=== PATIENT | male | born 1960 | race Caucasian/White ===

== ENCOUNTER 2023-05-31 11:20 | Outpatient (AMB) | payer BC, MEDICARE, SELFPAY ==
--- NOTE | 2023-05-31 10:42 | A.OFFPSYCH_ITS ---
Intake Intake Visit Reasons: depression Allergies cephalexin [From Keflex] Allergy (Severe, Verified 05/31/23 11:13) Difficulty Breathing Medication List - Last Reconciled 05/31/23 by Haroon Helton MD glyburide 10 mg PO BID lisinopril 5 mg PO DAILY lorazepam 1 mg PO DAILY PRN sitagliptin phosphate (Januvia) 25 mg PO DAILY HPI- Psychiatric Chief Complaint: depression HPI Narrative: Pt seen in f/u mood generally okay chronically anxious no significant depressive or manic episodes noted patient has concerns about with his children who is involved with drugs. He also has had difficulty with 1 of his siblings who may be having difficulties with certain legal issues in the family. In general the patient's concerns are reality based he did not bring forth any current delusional concerns. He does state that his blood sugars are not always in good control Mental Status Exam Mental Status Exam Narrative: Mental Status Exam Narrative: Appearance: Casually dressed weight beers Behavior: Cooperative psychomotor: No psychomotor abnormalities no abnormal movements Speech: Clear Thought proccess goal-directed reality based Thought content: Concerns regarding family himself life situation situation the country Mood: Anxiety Affect: Appropriate to mood SI:denies HI:denies VH/AH:none Delusions: None overly discussed Insight/judgment: Memory/cog: Grossly intact Telehealth Telehealth Location of provider rendering services: practice address Location of patient: address on file Patient Identification confirmed using: Name, : Yes Telehealth method: video Patient verbally consented to treatment: Yes Patient verbally consented to billing insurance company: Yes Assessment and Plan Assessment & Plan (1) Schizoaffective disorder with good prognostic features: Status: Acute Code(s): F25.9 - Schizoaffective disorder, unspecified (2) Type 2 diabetes mellitus: Status: Acute Code(s): E11.9 - Type 2 diabetes mellitus without complications Plan Strongly urged patient to follow his medical regimen lorazepam for anxiety used only intermittently. Some hints at past preoccupations with super natural but generally reality based feels supported by continued connection Medications: New lorazepam 1 mg PO DAILY PRN 10 tabs 1RF anxiety glyburide 10 mg PO BID lisinopril 5 mg PO DAILY lorazepam 1 mg PO DAILY PRN 10 tabs 1RF anxiety sitagliptin phosphate (Januvia) 25 mg PO DAILY albuterol sulfate 90 mcg/actuation 2 puffs inhalation Q6H PRN 6.7 grams 1RF shortness of breath or wheezing lorazepam 1 mg PO DAILY PRN 10 tabs 1RF anxiety Counseling and coordination of Care Pt. Self Management counseling: General coping skills Details-Med Mgmt counseling: Has not wanted to be on antipsychotics for many years he knows this is always an open possibility Diagnosis and Prognosis Counseling: Adequacy of current interventions Details: I spent [38] minutes reviewing the record, seeing the patient and documenting in the medical record. Counseling provided to the patient/caregiver as outlined below. Addressed patient/caregiver concerns regarding current medication regime including effective adherence. Addressed patient/caregiver concerns regarding diagnosis and prognosis including accuracy of diagnosis, prognosis over time, impact of diagnosis. Addressed patient/caregiver concerns regarding impact of recent stressors. 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 he has been non Street his ability for insight improved of time has not been employed generally as an adult. They do have 4 children When younger the patient had mood swings psychotic hospitalizations Substance History: none Trauma History: non Coding Level of Care Code Est Pt Level 3 (56540) Therapy 30m w/E&M (08777) Diagnoses Schizoaffective disorder with good prognostic features F25.9 Type 2 diabetes mellitus E11.9
== END 2023-05-31 11:21 | disposition home or self-care (01) ==
LOC: HO.HOP 11:20
PROVIDERS: PCP Family Medicine; Visit Provider Psychiatry & Neurology Psychiatry
DX: F25.9 Schizoaffective disorder, unspecified (principal); E11.9 Type 2 diabetes mellitus without complications
CPT/HCPCS: 90833; 99213

== ENCOUNTER → 2023-05-31 11:20 | Outpatient (BNVA) | payer BC, MEDICARE, SELFPAY | PROVIDERS: PCP Family Medicine; Visit Provider Psychiatry & Neurology Psychiatry ==

== ENCOUNTER 2025-03-13 11:57 | Outpatient (AMB) | payer BC, MEDICARE, SELFPAY ==
--- NOTE | 2025-03-13 12:19 | A.OFFPSYCH_ITS ---
Intake Intake Visit Reasons: depression Allergies cephalexin [From Keflex] Allergy (Severe, Verified 05/31/23 11:13) Difficulty Breathing Medication List - Last Reconciled 03/13/25 by Haroon Helton MD albuterol sulfate 90 mcg/actuation 2 puffs inhalation Q6H PRN glyburide 10 mg PO BID lisinopril 5 mg PO DAILY lorazepam 1 mg PO DAILY PRN sitagliptin phosphate (Januvia) 25 mg PO DAILY HPI- Psychiatric Chief Complaint: depression HPI Narrative: pt seen in f/u children fartun 30 [id number] are home with patient home has had eye inj diabetic vascular problems . Pt does have chronic stress at times eye difficulties . Patient has chronic alteration in reality process has in the past felt communications from yazidism figures seen demons what he thought were witches somewhat reticent to talk about. Difficulty with chronic intermittent anxiety. No classic depressive or manic symptoms. Has generally not taken antipsychotics. Mental Status Exam Mental Status Exam Narrative: Mental Status Exam Narrative: Appearance: Casually dressed weight beers Behavior: Cooperative psychomotor: No psychomotor abnormalities no abnormal movements Speech: Clear Thought proccess vague anxiety concerns nonspecific Thought content: Concerns regarding history since COVID nonspecific concerns difficult to elaborate Mood: Anxiety Affect: Appropriate to mood SI:denies HI:denies VH/AH:none Delusions: None overly discussed Insight/judgment: Memory/cog: Grossly intact Assessment and Plan Assessment & Plan (1) Schizoaffective disorder with good prognostic features: Status: Acute Code(s): F25.9 - Schizoaffective disorder, unspecified (2) Type 2 diabetes mellitus: Status: Acute Code(s): E11.9 - Type 2 diabetes mellitus without complications Plan Lorazepam PRN consider antipsychotics. Follow-up 4-8 weeks try and clarify diagnostic issues patient generally does well with reassurance a place to discuss. Will try and clarify current concerns Medications: Refilled lorazepam 1 mg PO DAILY PRN 14 tabs 2RF anxiety Counseling and coordination of Care Details-Self Mgmt counseling: Issues related to chronic psychosis Details-Med Mgmt counseling: Treatment options Diagnosis and Prognosis Counseling: Adequacy of current interventions Details: I spent [38] minutes reviewing the record, seeing the patient and documenting in the medical record. Counseling provided to the patient/caregiver as outlined below. Addressed patient/caregiver concerns regarding current medication regime including effective adherence. Addressed patient/caregiver concerns regarding diagnosis and prognosis including accuracy of diagnosis, prognosis over time, impact of diagnosis. Addressed patient/caregiver concerns regarding impact of recent stressors. 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 he has been non Street his ability for insight improved of time has not been employed generally as an adult. They do have 4 children When younger the patient had mood swings psychotic hospitalizations Substance History: none Trauma History: non Coding Level of Care Code Est Pt Level 3 (64269) Therapy 30m w/E&M (90402) Diagnoses Schizoaffective disorder with good prognostic features F25.9 Type 2 diabetes mellitus E11.9
--- OUTSIDE RECORDS SUMMARY | 2025-03-13 13:15 | XMS_ITS | Patient Health Record ---
Author Organization [facility] Address [address] [facility] [place] [address] Care Team Providers Care Fire Control Mechanic Name Role Phone Ant Post Primary Care Provider Unavaila ble Allergies Allergen (clinical drug ingredient) Drug/Non Drug Allergy documented on EMR Reaction Allergy Type Onset Date Status Cat dander cats (uncoded) Unknown Allergy Acti ve amoxicillin / clavulanate Augmentin Unknown Drug Allergy Active pork allergenic extract Pork (Diagnostic) Unknown Drug All ergy Active Reason For Referral No Information Medications Medication SIG (Take, Route, Fr equency, Duration) Notes Start Date End Date Status Januvia 25 MG as directed Orally daily Active Lisinopril 5 MG 1 tablet Orally Once a day Active Cipro 500 MG 1 tablet Orally every 12 hrs Active glyBURIDE 10 mg bid Active Vitamin D Active Multivital Active Problems Problem Type SNOMED Code ICD Code Onset Dates Problem Status W/U Status Risk Notes Problem [id number] Type 2 diabetes mellitus with other specified complication (E11.69) Active confirmed Problem 137752291 Obesity, unspecified (E66.9) Active confirmed Plan Of Treatment No Information Insurance Providers Payer Name Payer Address Payer Phone Subscriber Number Group Number Insured Name Patient Relationship to Insured Coverage Start Date Coverage End Date [employer] [place] [facility] [address] [place] [phone] [id number] Andrew Baez Self - patient is the insured Medicare of [place] [address] [place] [id number] Andrew Baez Self - patient is the insured Medical (General) History Medical History History ICD Code diabetes mellitus Epididymitis chronic kidney disease stage 3, GFR 30-5 9 ml/min hyperlipidemia hypertension chronic renal insufficiency Uncontrolled type 2 diabetes mellitus
--- OUTSIDE RECORDS SUMMARY | 2025-03-13 13:15 | XMS_ITS | Clinical Summary ---
Author Organization [facility] Address [address] [place] [address] Care Team Providers Care Textile Converter Name Role Phone Unavailable Primary Care Provider Unavailabl e Surgical History Surgery Date Site/Laterality Comments TONSILLECTOMY PROCEDURE: HISTORICAL TONSILLECTOMY Medical History Medical History Date Comments Type II or unspecified type diabetes mellitus without mention of complication, not stated as uncontrolled DX:Type II or unspecified ty pe diabetes mellitus without mention of complication, not stated as uncontrolled Atrophy of testis DX:Atrophy of testis Orchitis and epididymitis, unspecified 06/08/2006 DX:Orchitis and epididymitis, unspecified Proteinuria 06/08/2006 DX:Proteinuria Anxiety state, unspecified 07/10/2006 DX:An xiety state, unspecified Type II or unspecified type diabetes mellitus with renal manifestations, not stated as uncontrolled(250.40) ([facility] V24, [facility] V28) 09/22/2005 DX:Type II or unspecified t ype diabetes mellitus with renal manifestations, not stated as uncontrolled(250.40) ([facility]) Obese 04/30/2011 DX:Obese Noncompliance with treatment 12/24/2011 DX: Noncompliance with treatment Family History Medical History Relation Name Comments Diabetes Mother Relation Name Status Comments Mother Social History Tobacco Use Types Packs/Day Years Used Date Smoking Tobacco: Never Smokeless Tobacco: Never Alcohol Use Standard Drinks/Week Comments Not Asked 0 (1 standard drink = 0.6 oz pur e alcohol) Sex and Gender Information Value Date Recorded Sex Assigned at Not on file Legal Sex Male 9:42 PM EST Gender Identity Not on file Sexual Orientation Not on file Obstetrics History Plan of Treatment Health Maintenance Due Date Last Done Comments Diabetes: Annual GFR (Glomerular Filtration Rate) 1962 Diabetes: Annual Foot Exam 1972 Diabetes: Annual Retina Eye Exam 1972 DTaP,Tdap,and Td Vaccines (1 - Tdap) 1981 Pneumococcal Vaccine: 50+ Years (1 of 1 - PCV) 2012 Zoster Vaccines (1 of 2) 2012 RSV Immunization Adult Patients (1 - Risk 60-74 years 1-dose series) 2022 COVID-19 Vaccine (1 - 2023-2 5 season) 2024 Cholesterol Screening (Lipid Panel) 12/26/2024 Depression Screening 12/26/2024 Diabetes: Annual Urine Albumin-Creatinine Ratio (uACR) 12/26/2024 Diabetes: Blood Sugar Contro l Test (HGBA1C) 12/26/2024 HIV Screening 12/26/2024 Hepatitis C Screening 12/26/2024 Hypertension/CHF/CAD Annual BMP Blood Test 12/26/2024 Social Influencers of Health Screening 12/26/2024 Influenza Vaccine (Season Ended) 2025 10/09/2006, 09/22/2005 Colorectal Cancer Screening: Colonoscopy 12/01/2026 12/01/2016 HIB Vaccines Aged Out No longer eligi ble based on patient's age to complete this topic HPV Vaccines Aged Out No longer eligi ble based on patient's age to complete this topic Hepatitis A Vaccines Aged Out No long er eligible based on patient's age to complete this topic Hepatitis B Vaccines Aged Out No long er eligible based on patient's age to complete this topic IPV Vaccines Aged Out No longer eligi ble based on patient's age to complete this topic MMR Vaccines Aged Out No longer eligi ble based on patient's age to complete this topic Meningococcal ACWY Vaccine Aged Out N o longer eligible based on patient's age to complete this topic Meningococcal B Vaccine Aged Out No l onger eligible based on patient's age to complete this topic Pneumococcal Vaccine: Pediatrics (0 to 5 Years) and At-Risk Patients (6 to 64 Years) Aged Out No longer eligible b ased on patient's age to complete this topic RSV Immunization Patients Under 20 months Aged Out No longer eligible b ased on patient's age to complete this topic Varicella Vaccines Aged Out No longer eligible based on patient's age to complete this topic Procedures Procedure Name Priority Date/Time Associated Diagnosis Comments EXTERNAL COLONOSCOPY REPORT Routine 12/01/2016 11:20 AM EST from Last 3 Months or Most Recently Relevant to Health Maintenance Results * External Colonoscopy Report (12/01/2016 11:20 AM EST) Anatomical Region Laterality Modality Endoscopy us Historical Provider GI~PROCEDURE ORDERABLES F inal Result from Last 3 Months or Most Recently Relevant to Health Maintenance
== END 2025-03-13 13:52 | disposition home or self-care (01) ==
PROVIDERS: PCP Family Medicine; Visit Provider Psychiatry & Neurology Psychiatry
DX: F25.9 Schizoaffective disorder, unspecified (principal); E11.9 Type 2 diabetes mellitus without complications
CPT/HCPCS: 90833; 99213

== ENCOUNTER → 2025-03-13 11:57 | Outpatient (BNVA) | payer BC, MEDICARE, SELFPAY | PROVIDERS: PCP Family Medicine; Visit Provider Psychiatry & Neurology Psychiatry ==